=== PATIENT | female | born 1955 | race Caucasian/White ===

== ENCOUNTER 2021-12-14 13:29 | Inpatient (IN) | payer MEDICAID, MEDICARE, SELFPAY ==
[2021-12-14 17:03] VITALS: BP 139/76
[2021-12-14] MEDS ORDERED: GABA800T4 PO (18:18)
[2021-12-14] MEDS ORDERED: PANT40TA29 PO (18:18)
[2021-12-14] MEDS ORDERED: VITA100093 PO (18:18)
[2021-12-14] MEDS ORDERED: FLUO20CA22 PO (18:18)
[2021-12-14] MEDS ORDERED: CALC500T31 PO (18:18)
[2021-12-14] MEDS ORDERED: DIVA500T94 PO (18:18)
[2021-12-14] MEDS ORDERED: ATOR40TA75 PO (18:18)
[2021-12-14] MEDS ORDERED: METF500T13 PO (18:18)
[2021-12-14] MEDS ORDERED: LISI40TA4 PO (18:18)
[2021-12-14] MEDS ORDERED: CELE1CAP9 PO (18:18)
[2021-12-14] MEDS ORDERED: HYDR-3490 PO (18:18)
[2021-12-14] MEDS ORDERED: NS 1,000 ML IV ONE (18:40)
[2021-12-14] MEDS ORDERED: HOME MED LIST COMPLETE! XX SCH (18:50)
[2021-12-14 19:35] LABS: BASO % 0.4 % (0.0-1.0); EOS # 0.1 10^3/uL (0.0-0.5); EOS % 0.7 % (0.0-3.0); HEMATOCRIT 41.9 % (36.0-47.0); HEMOGLOBIN 13.8 g/dl (12.0-15.5); LYMPH # 3.6 10^3/uL (1.5-5.0); LYMPH % 49.4 % (24.0-44.0); MEAN CORPUSCULAR HEMOGLOBIN 29.3 pg (27.0-33.0); MEAN CORPUSCULAR HGB CONC 32.9 g/dl (32.0-36.5); MONO # 0.4 10^3/uL (0.0-0.8); MONO % 5.8 % (2.0-8.0); NEUTROPHILS # 3.2 10^3/uL (1.5-8.5); NEUTROPHILS % 43.3 % (36.0-66.0); PLATELET COUNT, AUTOMATED 203 10^3/uL (150-450); RED BLOOD COUNT 4.71 10^6/uL (4.00-5.40); WHITE BLOOD COUNT 7.4 10^3/uL (4.0-10.0)
[2021-12-14] MEDS: GASTROGRAFIN SOLUTION 30ML PO SCH ×2 (19:51→20:16)
[2021-12-14 19:56] LABS: ERYTHROCYTE SEDIMENTATION RATE 11 mm/hr (0-30)
[2021-12-14 19:58] LABS: CK-MB VALUE MASS < 1.0 NG/ML (<3.6); CPK CREATINE PHOSPHOKINASE 50 U/L (26-192)
[2021-12-14 20:00] LABS: ALT/SGPT 303 U/L (12-78); BILIRUBIN,TOTAL 0.4 MG/DL (0.2-1.0); BLOOD UREA NITROGEN 8 MG/DL (7-18); CALCIUM LEVEL 8.7 MG/DL (8.8-10.2); CARBON DIOXIDE LEVEL 30 MEQ/L (21-32); CHLORIDE LEVEL 105 MEQ/L (98-107); GLOMERULAR FILTRATION RATE > 60.0 (>45); GLUCOSE, FASTING 122 MG/DL (70-100); LIPASE 1598 U/L (73-393); POTASSIUM SERUM 3.7 MEQ/L (3.5-5.1); SODIUM LEVEL 139 MEQ/L (136-145); TOTAL PROTEIN 6.2 GM/DL (6.4-8.2)
[2021-12-14 20:00] LABS: AMYLASE 197 U/L (25-115)
[2021-12-14] MEDS ORDERED: DEXTROSE 50% 50 ML SYRINGE IV PRN (20:00)
[2021-12-14] MEDS ORDERED: GLUCAGON INJ 1MG VIAL SC PRN (20:00)
[2021-12-14] MEDS ORDERED: GLUCOSE 4GM CHEW TABLET PO PRN (20:00)
[2021-12-14] MEDS: GABAPENTIN 400MG CAP PO SCH (20:16)
[2021-12-14] MEDS: SUCRALFATE SUSP 1GM/10ML UD PO SCH (20:16)
[2021-12-14] MEDS: PANTOPRAZOLE 40MG VIAL IV SCH (20:16)
[2021-12-14] MEDS: D5W/0.45% SODIUM CHLORIDE 1,000 ML IV SCH (20:17)
[2021-12-14 20:19] LABS: MAGNESIUM LEVEL 1.9 MG/DL (1.8-2.4)
[2021-12-14 20:26] LABS: MONO SCRN NEGATIVE (NEGATIVE)
[2021-12-14 20:33] LABS: HEPATITIS B SURFACE ANTIGEN NEGATIVE (NEGATIVE)
[2021-12-14 21:00] LABS: HEPATITIS C VIRUS ABY INDEX 0.1 INDEX (<0.8)
[2021-12-14 21:01] LABS: HEPATITIS B CORE ANTIBODY IGM NEGATIVE (NEGATIVE)
[2021-12-14] MEDS ORDERED: ISOVUE-370 76% 100ML VIAL As Ordered ONE (21:22)
[2021-12-14 22:00] VITALS: BP 114/65
[2021-12-14] MEDS: DIVALPROEX 500 MG TAB PO SCH (22:03)
[2021-12-15] MEDS: SUCRALFATE SUSP 1GM/10ML UD PO SCH ×4 (00:54→17:21)
[2021-12-15 06:00] VITALS: BP 100/64
[2021-12-15 06:46] LABS: BASO % 0.6 % (0.0-1.0); EOS # 0.1 10^3/uL (0.0-0.5); HEMATOCRIT 42.5 % (36.0-47.0); HEMOGLOBIN 13.8 g/dl (12.0-15.5); LYMPH # 2.8 10^3/uL (1.5-5.0); LYMPH % 44.5 % (24.0-44.0); MEAN CORPUSCULAR HEMOGLOBIN 29.2 pg (27.0-33.0); MEAN CORPUSCULAR HGB CONC 32.5 g/dl (32.0-36.5); MONO # 0.4 10^3/uL (0.0-0.8); MONO % 6.4 % (2.0-8.0); NEUTROPHILS # 2.9 10^3/uL (1.5-8.5); NEUTROPHILS % 46.9 % (36.0-66.0); PLATELET COUNT, AUTOMATED 216 10^3/uL (150-450); RED BLOOD COUNT 4.72 10^6/uL (4.00-5.40); WHITE BLOOD COUNT 6.3 10^3/uL (4.0-10.0)
[2021-12-15 07:19] LABS: HEMOGLOBIN A1c 6.8 %
[2021-12-15] MEDS ORDERED: IPRATROPIUM 0.5MG/ALBUTEROL 2.5MG INH SOL UD 3ML (DUONEB) NEB PRN (07:25)
[2021-12-15 07:27] LABS: ALBUMIN 2.9 GM/DL (3.2-5.2); ALT/SGPT 318 U/L (12-78); BILIRUBIN,TOTAL 0.4 MG/DL (0.2-1.0); BLOOD UREA NITROGEN 5 MG/DL (7-18); CALCIUM LEVEL 8.3 MG/DL (8.8-10.2); CARBON DIOXIDE LEVEL 34 MEQ/L (21-32); CHLORIDE LEVEL 106 MEQ/L (98-107); CHOLESTEROL LEVEL 101 MG/DL (<200); CHOLESTEROL RISK RATIO 3.156 (<5); CREATININE FOR GFR 0.64 MG/DL (0.55-1.30); GLOMERULAR FILTRATION RATE > 60.0 (>45); GLUCOSE, FASTING 111 MG/DL (70-100); HDL CHOLESTEROL 32 MG/DL (>40); LDL CHOLESTEROL 33 MG/DL (<100); NON-HDL-C 69 MG/DL; POTASSIUM SERUM 3.7 MEQ/L (3.5-5.1); SODIUM LEVEL 143 MEQ/L (136-145); TOTAL PROTEIN 5.9 GM/DL (6.4-8.2); TRIGLYCERIDES LEVEL 182 MG/DL (<150)
[2021-12-15] MEDS ORDERED: E-Z-PAQUE 96% w/w SUSP 176GM BTL As Ordered ONE (08:24)
[2021-12-15] MEDS ORDERED: E-Z-HD 98% w/w 340GM SUSP BTL As Ordered ONE (08:24)
[2021-12-15] MEDS ORDERED: E-Z-GAS II EFFERVESCENT PACKET (SODIUM BICARB./CITRIC ACID/SIMETHICONE) As Ordered ONE (08:24)
[2021-12-15 08:42] LABS: NT-PRO BNP 136 PG/ML (<125)
[2021-12-15] MEDS ORDERED: FLUoxetine 20MG CAP PO SCH (09:00)
[2021-12-15] MEDS: IPRATROPIUM 0.5MG/ALBUTEROL 2.5MG INH SOL UD 3ML (DUONEB) NEB SCH ×4 (09:00→19:23)
[2021-12-15] MEDS: GABAPENTIN 400MG CAP PO SCH ×3 (09:25→21:28)
[2021-12-15] MEDS: D5W/0.45% SODIUM CHLORIDE 1,000 ML IV SCH ×2 (09:26→17:21)
[2021-12-15] MEDS: INSULIN LISPRO (NovoLOG) PER UNIT SC SCH ×4 (09:26→18:00)
[2021-12-15 09:33] LABS: INR 1.03; PROTHROMBIN TIME 13.9 SECONDS (12.7-14.5)
[2021-12-15 09:34] LABS: PARTIAL THROMBOPLASTIN TIME 29.6 SECONDS (25.9-37.0)
[2021-12-15 09:42] LABS: PERCENT SATURATION 26.5 % (13.2-45.0)
[2021-12-15] MEDS ORDERED: LIDOCAINE 1% MDV 20ML VIAL As Ordered ONE (13:13)
[2021-12-15 14:30] VITALS: BP 124/74
[2021-12-15] MEDS: KETOROLAC 30 MG/ML 1ML VIAL IV PRN ×2 (14:39→21:28)
[2021-12-15] MEDS: PANTOPRAZOLE 40MG VIAL IV SCH ×2 (14:39→20:08)
[2021-12-15] MEDS: DIVALPROEX 500 MG TAB PO SCH ×2 (14:40→20:08)
[2021-12-15 15:15] VITALS: BP 116/59
[2021-12-15 15:45] VITALS: BP 132/66
[2021-12-15] MEDS ORDERED: MAG SULF 1GM/100ML (MAG RUN) 1 GM in IV 1 EA IV ONE (17:45)
[2021-12-15] MEDS ORDERED: POTASSIUM CHLORIDE 10MEQ SR TABLET PO ONE (17:45)
[2021-12-15 18:34] LABS: POTASSIUM SERUM 3.5 MEQ/L (3.5-5.1)
[2021-12-15 22:00] VITALS: BP 120/63
[2021-12-16] MEDS: SUCRALFATE SUSP 1GM/10ML UD PO SCH ×4 (00:49→18:19)
[2021-12-16] MEDS: IPRATROPIUM 0.5MG/ALBUTEROL 2.5MG INH SOL UD 3ML (DUONEB) NEB SCH ×6 (03:35→20:39)
[2021-12-16] MEDS: KETOROLAC 30 MG/ML 1ML VIAL IV PRN ×3 (03:42→16:37)
[2021-12-16] MEDS: D5W/0.45% SODIUM CHLORIDE 1,000 ML IV SCH (04:44)
[2021-12-16 06:00] VITALS: BP 122/66
[2021-12-16] MEDS: INSULIN LISPRO (NovoLOG) PER UNIT SC SCH ×4 (06:00→17:50)
[2021-12-16 06:08] LABS: BASO % 0.7 % (0.0-1.0); EOS # 0.1 10^3/uL (0.0-0.5); EOS % 1.1 % (0.0-3.0); HEMATOCRIT 40.4 % (36.0-47.0); HEMOGLOBIN 13.5 g/dl (12.0-15.5); LYMPH # 2.5 10^3/uL (1.5-5.0); LYMPH % 44.7 % (24.0-44.0); MEAN CORPUSCULAR HEMOGLOBIN 30.2 pg (27.0-33.0); MEAN CORPUSCULAR HGB CONC 33.4 g/dl (32.0-36.5); MEAN CORPUSCULAR VOLUME 90.4 fl (80.0-96.0); MONO # 0.3 10^3/uL (0.0-0.8); MONO % 6.1 % (2.0-8.0); NEUTROPHILS # 2.6 10^3/uL (1.5-8.5); NEUTROPHILS % 46.5 % (36.0-66.0); PLATELET COUNT, AUTOMATED 222 10^3/uL (150-450); RED BLOOD COUNT 4.47 10^6/uL (4.00-5.40); WHITE BLOOD COUNT 5.6 10^3/uL (4.0-10.0)
[2021-12-16 06:33] LABS: ALBUMIN 2.9 GM/DL (3.2-5.2); ALT/SGPT 271 U/L (12-78); BILIRUBIN,TOTAL 0.6 MG/DL (0.2-1.0); BLOOD UREA NITROGEN 5 MG/DL (7-18); CALCIUM LEVEL 8.3 MG/DL (8.8-10.2); CARBON DIOXIDE LEVEL 31 MEQ/L (21-32); CHLORIDE LEVEL 108 MEQ/L (98-107); GLOMERULAR FILTRATION RATE > 60.0 (>45); GLUCOSE, FASTING 121 MG/DL (70-100); SODIUM LEVEL 143 MEQ/L (136-145); TOTAL PROTEIN 5.9 GM/DL (6.4-8.2)
[2021-12-16] MEDS: GABAPENTIN 400MG CAP PO SCH ×3 (09:36→20:40)
[2021-12-16] MEDS: PANTOPRAZOLE 40MG VIAL IV SCH ×2 (09:36→20:39)
[2021-12-16] MEDS: DIVALPROEX 500 MG TAB PO SCH ×2 (09:37→20:40)
[2021-12-16 12:10] LABS: ANTINUCLEAR ANTIBODIES DIRECT Negative (Negative)
[2021-12-16] MEDS ORDERED: CARA1TAB6 PO (13:40)
[2021-12-16 14:00] VITALS: BP 117/59
[2021-12-16] MEDS ORDERED: oxyCODONE 5MG TAB PO ONE (18:30)
[2021-12-16] MEDS ORDERED: NALOXONE INJ 0.4MG/1ML VIAL (J2310 PER 1MG) IV PRN (18:30)
[2021-12-16] MEDS ORDERED: INSULIN LISPRO (NovoLOG) PER UNIT SC SCH (21:00)
[2021-12-16 22:00] VITALS: BP 133/62
[2021-12-17] MEDS: SUCRALFATE SUSP 1GM/10ML UD PO SCH ×3 (00:27→13:12)
[2021-12-17] MEDS: IPRATROPIUM 0.5MG/ALBUTEROL 2.5MG INH SOL UD 3ML (DUONEB) NEB SCH ×4 (00:28→11:26)
[2021-12-17] MEDS: oxyCODONE 5MG TAB PO PRN ×2 (00:46→13:14)
[2021-12-17] MEDS: KETOROLAC 30 MG/ML 1ML VIAL IV PRN (02:08)
[2021-12-17 05:49] VITALS: BP 129/72
[2021-12-17 06:14] LABS: BASO % 0.5 % (0.0-1.0); EOS # 0.1 10^3/uL (0.0-0.5); EOS % 2.1 % (0.0-3.0); HEMATOCRIT 38.6 % (36.0-47.0); HEMOGLOBIN 12.5 g/dl (12.0-15.5); LYMPH # 2.6 10^3/uL (1.5-5.0); LYMPH % 41.9 % (24.0-44.0); MEAN CORPUSCULAR HEMOGLOBIN 29.9 pg (27.0-33.0); MEAN CORPUSCULAR HGB CONC 32.4 g/dl (32.0-36.5); MEAN CORPUSCULAR VOLUME 92.3 fl (80.0-96.0); MONO # 0.4 10^3/uL (0.0-0.8); MONO % 6.7 % (2.0-8.0); NEUTROPHILS % 47.8 % (36.0-66.0); PLATELET COUNT, AUTOMATED 229 10^3/uL (150-450); RED BLOOD COUNT 4.18 10^6/uL (4.00-5.40); WHITE BLOOD COUNT 6.3 10^3/uL (4.0-10.0)
[2021-12-17 06:49] LABS: ALBUMIN 2.9 GM/DL (3.2-5.2); ALT/SGPT 198 U/L (12-78); BILIRUBIN,TOTAL 0.4 MG/DL (0.2-1.0); BLOOD UREA NITROGEN 6 MG/DL (7-18); CALCIUM LEVEL 8.4 MG/DL (8.8-10.2); CARBON DIOXIDE LEVEL 30 MEQ/L (21-32); CHLORIDE LEVEL 109 MEQ/L (98-107); GLOMERULAR FILTRATION RATE > 60.0 (>45); GLUCOSE, FASTING 112 MG/DL (70-100); POTASSIUM SERUM 3.8 MEQ/L (3.5-5.1); SODIUM LEVEL 146 MEQ/L (136-145); TOTAL PROTEIN 5.8 GM/DL (6.4-8.2)
[2021-12-17] MEDS ORDERED: D5W 1,000 ML IV ONE ×2 (09:20→12:15)
[2021-12-17] MEDS: DIVALPROEX 500 MG TAB PO SCH (09:52)
[2021-12-17] MEDS: PANTOPRAZOLE 40MG VIAL IV SCH (09:52)
[2021-12-17] MEDS: GABAPENTIN 400MG CAP PO SCH ×2 (09:52→15:31)
[2021-12-17] MEDS: INSULIN LISPRO (NovoLOG) PER UNIT SC SCH ×2 (09:58→13:12)
[2021-12-17 12:53] LABS: BLOOD UREA NITROGEN 7 MG/DL (7-18); CALCIUM LEVEL 8.6 MG/DL (8.8-10.2); CARBON DIOXIDE LEVEL 27 MEQ/L (21-32); CHLORIDE LEVEL 109 MEQ/L (98-107); CREATININE FOR GFR 0.76 MG/DL (0.55-1.30); GLOMERULAR FILTRATION RATE > 60.0 (>45); GLUCOSE, FASTING 250 MG/DL (70-100); POTASSIUM SERUM 3.8 MEQ/L (3.5-5.1); SODIUM LEVEL 141 MEQ/L (136-145)
[2021-12-17 16:11] LABS: Chitobioside Carbohydrat (ACCA 27 units (0-90); Laminaribioside Carbohyd (ALCA 14 units (0-60); Mannobioside Carbohydrat (AMCA 25 units (0-100); Saccharomyces cerevisiae IgG A 29 units (0-50)
== END 2021-12-17 15:34 | disposition home or self-care (01) | DRG 948 ==
LOC: M MSPAV 17:04
PROVIDERS: ADMIT Internal Medicine; ATTEND General Practice
PROC: BF45ZZZ Ultrasonography of Liver (ICD-10-PCS; 2021-12-15)
PROC: 0FB23ZX Excision of Left Lobe Liver, Percutaneous Approach, Diagnostic (ICD-10-PCS; principal; 2021-12-15 14:30)
DX: R74.01 Elevation of levels of liver transaminase levels (principal); K21.9 Gastro-esophageal reflux disease without esophagitis; K76.0 Fatty (change of) liver, not elsewhere classified; K44.9 Diaphragmatic hernia without obstruction or gangrene; K63.5 Polyp of colon; K29.50 Unspecified chronic gastritis without bleeding; Z90.49 Acquired absence of other specified parts of digestive tract; I10 Essential (primary) hypertension; E78.5 Hyperlipidemia, unspecified; E11.9 Type 2 diabetes mellitus without complications; G40.909 Epilepsy, unspecified, not intractable, without status epilepticus; E66.01 Morbid (severe) obesity due to excess calories; G47.30 Sleep apnea, unspecified; Z90.79 Acquired absence of other genital organ(s); Z87.891 Personal history of nicotine dependence; Z79.84 Long term (current) use of oral hypoglycemic drugs; Z79.2 Long term (current) use of antibiotics; Z79.899 Other long term (current) drug therapy; R51.9 Headache, unspecified; R11.2 Nausea with vomiting, unspecified; R19.7 Diarrhea, unspecified; Z20.822 Contact with and (suspected) exposure to COVID-19; R30.0 Dysuria

== ENCOUNTER 2022-11-07 07:00 | Day surgery (SDC) | payer MEDICARE, MEDICAID ==
[~2022-11-07] VITALS: Ht 165.1 cm; Wt 118.4 kg
[~2022-11-07 07:00] MED LIST: ATOR40TA75 PO; CALC500T31 PO; CARA1TAB6 PO; CELE1CAP9 PO; DIVA500T94 PO; FLUO20CA22 PO; GABA800T4 PO; HYDR-3490 PO; LISI40TA4 PO; METF500T13 PO; NS 1,000 ML IV ONE; PANT40TA29 PO; VITA100093 PO
[2022-11-07] MEDS ORDERED: LIDOCAINE 2% 100MG/5ML SDV (FOR ANES.) As Ordered ONE (07:18)
[2022-11-07] MEDS ORDERED: propofoL 200 MG/20 ML VIAL As Ordered ONE (07:18)
[2022-11-07] MEDS ORDERED: fentaNYL 100 MCG/2 ML INJECTION As Ordered ONE (07:19)
[2022-11-07 08:30] VITALS: BP 147/72
== END 2022-11-07 08:48 | disposition home or self-care (01) ==
LOC: M OPP 07:00
PROVIDERS: ATTEND Internal Medicine Gastroenterology
DX: K57.30 Diverticulosis of large intestine without perforation or abscess without bleeding (principal); K64.8 Other hemorrhoids; R10.13 Epigastric pain
CPT/HCPCS: 43235; 45378; J3010

== ENCOUNTER → 2024-01-31 | Outpatient (CLI) | payer MEDICARE ==
[~2024-01-31] MED LIST changes: +CELE0.09 PO; -CELE1CAP9 PO; +FLUO-365 PO; -FLUO20CA22 PO; -NS 1,000 ML IV ONE
[2024-02-01 12:13] LABS: BLOOD UREA NITROGEN 10 MG/DL (9-23); GLOMERULAR FILTRATION RATE > 60.0 (>45)
== END ==
LOC: M LRY 12:17
PROVIDERS: ATTEND Internal Medicine Gastroenterology
DX: K75.81 Nonalcoholic steatohepatitis (NASH) (principal)

== ENCOUNTER 2024-04-23 06:53 | Day surgery (SDC) | payer OTHER ==
[~2024-04-23] VITALS: Ht 167.6 cm; Wt 119.4 kg
[~2024-04-23 06:53] MED LIST changes: +BUPR10DI3; -CALC500T31 PO; +ECOT81TA5 PO; +FLUO40CA PO; +GABA-1635 PO; -GABA800T4 PO; +LISI5TAB11 PO; +NS 1,000 ML IV ONE; +OYST500T16 PO
[2024-04-23] MEDS ORDERED: fentaNYL 100 MCG/2 ML INJECTION As Ordered ONE (09:03)
[2024-04-23] MEDS ORDERED: propofoL 200 MG/20 ML VIAL As Ordered ONE (09:05)
[2024-04-23 09:21] VITALS: TEMP 98.9
[2024-04-23 09:45] VITALS: BP 131/63; O2SAT 95
== END 2024-04-23 09:50 | disposition home or self-care (01) ==
LOC: M OPP 06:53
PROVIDERS: ATTEND Internal Medicine Gastroenterology
DX: K51.40 Inflammatory polyps of colon without complications (principal); K57.31 Diverticulosis of large intestine without perforation or abscess with bleeding; R10.84 Generalized abdominal pain; K64.8 Other hemorrhoids; K21.9 Gastro-esophageal reflux disease without esophagitis; K76.0 Fatty (change of) liver, not elsewhere classified; Z87.19 Personal history of other diseases of the digestive system; E11.40 Type 2 diabetes mellitus with diabetic neuropathy, unspecified; I10 Essential (primary) hypertension; E78.00 Pure hypercholesterolemia, unspecified; Z90.710 Acquired absence of both cervix and uterus; Z79.84 Long term (current) use of oral hypoglycemic drugs; Z79.82 Long term (current) use of aspirin; Z86.69 Personal history of other diseases of the nervous system and sense organs
CPT/HCPCS: 45385; 88305; J3010

== ENCOUNTER → 2024-05-02 | Outpatient (CLI) | payer OTHER ==
[~2024-05-02] MED LIST changes: -NS 1,000 ML IV ONE; +PROHANCE 279.3MG/ML 15ML VIAL ONE; +PROHANCE 279.3MG/ML 5ML VIAL ONE
== END ==
LOC: M PLAIMG 14:02
PROVIDERS: ATTEND Internal Medicine Gastroenterology
DX: R93.3 Abnormal findings on diagnostic imaging of other parts of digestive tract (principal); D35.01 Benign neoplasm of right adrenal gland
CPT/HCPCS: 74183; A9576